=== PATIENT | male | born 1965 | race Caucasian/White ===

== ENCOUNTER 2016-04-06 09:38 | Inpatient (IN) | payer OTHER ==
[~2016-04-06] VITALS: Ht 175.3 cm; Wt 72.0 kg
--- NOTE | ~2016-04-06 | OR ---
ADMIT: 04/06/2016 RM/LOC: 528 [facility] MR#: [id number] [facility]#: [id number] [address] [address] ANTOINEAYAD LENTZDEMETRICE [address] [place] [address] Operative/Delivery Room Report SEX: M AGE: 51 : 1965 SURGERY DATE: 04/06/2016 SURGEON: Ignacio Arroyo MD PREOPERATIVE DIAGNOSIS: Right knee severe degenerative joint disease and retained hardware. POSTOPERATIVE DIAGNOSE: Right knee severe degenerative joint disease and retained hardware. PROCEDURE PERFORMED: Right total knee arthroplasty with a Dony and Dony system, size 4 posterior stabilized femoral component, size 4 tibial tray, size 41 patellar button, and hardware remover of an ACL interference screw from the tibia. SENIOR DATA WAREHOUSE ARCHITECT: DALLAS Kilgore ANESTHESIA: Spinal. ESTIMATED BLOOD LOSS: Minimal. FLUIDS: Per anesthetic record. COMPLICATIONS: No complications. DRAINS: One drain. TOURNIQUET TIME: 117 minutes. CONDITION ON DISCHARGE: The patient returned to the recovery room in fair condition. INDICATIONS: The patient has a right severe knee DJD with flexion contracture and lack of full extension, severe varus deformity. He has had an ACL reconstruction decades ago and had arthrofibrosis postoperatively that required manipulations. He desired total knee arthroplasty, understood the risks and benefits of procedure and desired to proceed with operation. DESCRIPTION OF PROCEDURE: The patient taken back to the OR, spinal placed. She was laid in the supine position. All bony prominences were well padded. Right lower extremity had a well-padded tourniquet placed. The right lower extremity was prepped draped in the usual sterile fashion. It was exsanguinated and tourniquet inflated to 350 mmHg. Anterior incision was made starting above the patella and carried down to the medial aspect of the tibial tubercle incorporating his previous ACL incision. The medial arthrotomy then was performed with a #10 blade. I had to elevate his posterior medial capsule with the elevator and elevated his MCL medially. I had to release his scar in the patellar tendon off the anterior and lateral aspect of his proximal tibia with a Bovie and debulking of the scar tissue. I was then able to find his ADMIT: 04/06/2016 RM/LOC: 528 [facility] MR#: [id number] [address] [address] [address] [place] [address] Operative/Delivery Room Report SEX: M AGE: 51 : 1965 interference screw. I loosened it and some of the bone around it with osteotome and a mallet. I then removed the screw with the screwdriver. I then was able to subluxate the patella laterally, could not mich it, but was able to flex the knee almost 90 degrees. I used a step drill and opened the intramedullary canal of the femur. I placed the IM alignment guide with the distal femoral cutting block down the intramedullary canal of the femur set at 13 mm of resection, 3 degrees of valgus cut and pinned it to the anterior aspect of the distal femur and removed the IM alignment guide. I cut the distal femur using an oscillating saw. I removed this cutting block and then placed the box cutting jig on the distal aspect of the femur. After I had sized it at 4. I made the 4 appropriate cuts using an oscillating saw. I then removed the four-in-one cutting jig and placed the box cutting jig on the distal aspect of the femur. I cut the box out of the distal femur using a reciprocating saw. Medial and lateral menisci excised. The stump of the PCL was excised. I used a proximal tibial cutting guide and cut the proximal tibia perpendicular to the long axis of the tibial shaft using the proximal tibial cutting guide and oscillating saw. I removed osteophytes medially. Again, I had to release his posterior oblique ligament medially off the screen room operator medial tibia in order to get his gaps to equalize. I was able to do this. I then cut the posterior aspect of the patella, flushed with the posterior aspects quadriceps and patellar tendon using the patella cutting saw, sized it as a 41, step drilled with the guide. I then placed trial components. A size 4 tibial tray with a 10 mm insert gave full extension, 130 degrees of flexion, good ligamentous stability, and patellar tracking. Thus, the femoral component was step drilled. Tibial component was step drilled, and cruciate punched. Trial components were then removed. Knee thoroughly injected throughout with Exparel. Knee thoroughly irrigated with bacitracin solution and dried. I then cemented the tibia, patella, and femoral components into place removing all extraneous cement as it dried. I then impacted the 10 mm insert, and the tibial tray and ran the knee through a range of motion. It had excellent range of motion and stability and patellar tracking. Thus, one deep drain was then placed. Medial arthrotomy closed using #1 Vicryl. Subcutaneous tissue closed using 2-0 Vicryl. Skin closed using alexus. Wounds were washed, dried, dressed with sterile Adaptic, 4x4s, ABD, Webril, and Sherif wrap. Drapes removed. Tourniquet let down. The patient transferred back to the recovery room in fair condition. Ignacio Arroyo MD/ susanne JOB #: [id number] CC: Ignacio Arroyo, Attending Physician Primitivo Naranjo, Family Physician
--- NOTE | 2016-04-06 16:16 | HP ---
ADMIT: 04/06/2016 RM/LOC: W.06 [facility] MR#: [id number] [facility] [address] [place] [address] [place] [address] Pre-OP History and Physical SEX: M AGE: 51 : 1965 DATE OF SERVICE: CHIEF COMPLAINT: Right knee pain. HISTORY OF PRESENT ILLNESS: The patient is a 51-year-old white male with right knee DJD, it is severe. He has had cortisone injections. He has had varus deformity of the knee and has had resection back in the 80s. He had arthrofibrosis manipulation at that time, but he has gone with degenerative changes. PAST MEDICAL HISTORY: Significant for hypertension. PAST SURGICAL HISTORY: ACL surgery. MEDICATIONS: 1. Aspirin. 2. Pravastatin. ALLERGIES: NO ALLERGIES. SOCIAL HISTORY: He does not smoke or regularly drink alcohol. PHYSICAL EXAMINATION: HEENT: Normocephalic and atraumatic. CV: Regular rate and rhythm. LUNGS: Benign. ABDOMEN: Benign. NEUROLOGIC: Awake, alert, and oriented x3. MUSCULOSKELETAL: Shows severe valgus orientation of knee. Short of couple degrees of full extension, flexes to 110 degrees. Tender over the medial joint line of the patellofemoral joint. No ligamentous laxity. ADMIT: 04/06/2016 RM/LOC: W.06 [facility] MR#: [id number] [facility] [address] [address] [address] [place] [address] Pre-OP History and Physical SEX: M AGE: 51 : 1965 IMAGING DATA: X-rays show right severe knee DJD with some medial joint space loss. At this point in time, he also has two interference screws, status post ACL reconstruction. ASSESSMENT: Right severe knee degenerative joint disease. PLAN: At this point in time, I will plan right total knee arthroplasty, hardware removal. The patient understands the risks and benefits of surgical intervention and desires to proceed. He will see his medical doctor, Dr. Naranjo for preoperative medical clearance. Follow up postoperatively in hospital for anticoagulation or any medical issues that may arise. Please refer to the H and P for any in-depth medical issues. Ignacio Arroyo MD/ susanne JOB #: [id number] CC: Ignacio Arroyo, Attending Physician Primitivo Naranjo, Family Physician
[2016-04-09] MEDS ORDERED: PRAVACHOL40 MG PO (14:48)
[2016-04-09] MEDS ORDERED: COZAAR DPS50 MG PO (14:48)
[2016-04-09] MEDS ORDERED: ASA325 MG PO (14:48)
[2016-04-09] MEDS ORDERED: [UNRECOGNIZED DRUG - OTHER] PO (14:49)
[2016-04-09] MEDS ORDERED: THERAPEUTIC MUL1 TAB PO (14:49)
[2016-04-09] MEDS ORDERED: GLUCOSAMINE/CHO1 TAB PO (14:49)
[2016-04-09] MEDS ORDERED: VITAMIN D31000 UNI1 PO (14:49)
[2016-04-09] MEDS ORDERED: OMEGA-3 DPS1000 MG PO (14:49)
[2016-04-09] MEDS ORDERED: TYLENOL DPS325 MG PO (14:50)
[2016-04-09] MEDS ORDERED: CELEBREX200 MG PO (14:50)
[2016-04-09] MEDS ORDERED: POLYETHYLENE GL17 GM PO (14:50)
[2016-04-09] MEDS ORDERED: PROTONIX40 MG PO (14:50)
[2016-04-09] MEDS ORDERED: ULTRAM DPS50 MG PO (14:51)
[2016-04-09] MEDS ORDERED: OXY IR DPS5 MG PO (14:51)
[2016-04-09] MEDS ORDERED: MAALOX DPS30 ML PO (14:51)
[2016-04-09] MEDS ORDERED: MILK OF MAGNESI10 ML PO (14:51)
--- NOTE | 2016-04-11 12:04 | CO ---
ADMIT: 04/06/2016 RM/LOC: 528 [facility] MR#: [id number] [address] [address] [address] [place] [address] Consultation Report SEX: M AGE: 51 : 1965 DATE OF CONSULTATION: 03/19/2016 ATTENDING PHYSICIAN: Ignacio Arroyo CONSULTING PHYSICIAN: Primitivo Naranjo MD ADMITTING DIAGNOSIS: End-stage degenerative arthritis, right knee. SCHEDULED PROCEDURE: A right total knee arthroplasty with Dr. Arroyo. OPERATIVE SURGEON: Ignacio Arroyo MD HISTORY OF PRESENT ILLNESS: Susana is a 51-year-old, white male, who is admitted to [place] for failed conservative management of right knee pain with scheduled right total knee arthroplasty on April 06, 2016, with Dr. Arroyo for end-stage degenerative arthritis of his right knee resulting from an injury in the 80s with a right ACL tear and subsequent sequelae. PAST MEDICAL HISTORY: Includes a prior ACL surgery in the mid 80s with prior meniscal injuries and meniscal surgeries along with an appendectomy. ILLNESSES: Include benign essential hypertension, hyperlipidemia, sensorineural hearing loss, exogenous obesity, end-stage degenerative arthritis of the right knee. MEDICATIONS: On admission include: 1. Fish oil 1000 mg b.i.d. 2. Losartan 50 mg daily. 3. Nabumetone 500 mg b.i.d. on hold. 4. Pravastatin 40 mg at bedtime. 5. Vitamin D 1000 units daily. 6. Aspirin 81 mg daily on hold. 7. Glucosamine chondroitin. ALLERGIES: NONE KNOWN. SOCIAL HISTORY: This is a 51-year-old, , white male. He does not currently smoke. He works in construction field and drinks alcohol socially. FAMILY HISTORY: Negative for anesthetic complications. REVIEW OF SYSTEMS: Remarkable for arthritis in his knees. Unilateral sensorineural hearing loss. Remainder of review of systems is negative. PHYSICAL EXAMINATION: VITAL SIGNS: Include blood pressure 132/80 with a pulse 94, temperature 98.8 with a weight of pounds with a height is 70-1/2 inches with a sat of 98%. GENERAL: Alert. HEENT: Pupils reactive. Extraocular muscle intact. TMs normal. Throat normal. ADMIT: 04/06/2016 RM/LOC: 528 [facility] MR#: [id number] [address] [address] [address] [place] [address] Consultation Report SEX: M AGE: 51 : 1965 NECK: Normal. HEART: Regular without murmur. LUNGS: Clear. ABDOMEN: Obese soft, nontender, benign. and RECTAL: Deferred. EXTREMITIES: Reveal degenerative changes of right knee with no clubbing or cyanosis. NEUROLOGIC: Exam is grossly normal including light touch, strength, and DTRs. LABORATORY AND DIAGNOSTIC DATA: Chest x-ray is normal. EKG shows normal sinus rhythm. Normal EKG. White count 7.8, hemoglobin 15.9, platelet count of 257,000. BMP with a sodium of 138, potassium 4.3, BUN of 14, creatinine 1.0, glucose 138, with a TSH and a hemoglobin A1c ordered and results pending. ASSESSMENT: End-stage degenerative arthritis, right knee. Other problems include benign essential hypertension, well controlled. Hyperlipidemia, well controlled. Sensorineural hearing loss. Exogenous obesity. Vitamin D replacement. PLAN: We will continue with his current home medications including losartan the morning of surgery. His aspirin is currently on hold. We will continue with his pravastatin and hold his vitamins, fish oil and other medications. He will be placed on the aspirin protocol for postop for ortho discussions. We will follow along in the perioperative period and for postop recovery and proceed with further evaluation and management based on his course postoperatively. Please see his hospital record for the details. Primitivo Naranjo MD/ susanne EDIT: 03/19/2016 1757 vdg EDIT: 04/07/2016 1114 stacy JOB #: [id number] CC: Ignacio Arroyo, Attending Physician Primitivo Naranjo, Family Physician
--- NOTE | 2016-04-20 14:09 | DS ---
ADMIT: 04/06/2016 RM/LOC: 528 [facility] MR#: [id number] [facility]#: [id number] [address] [address] ANTOINEMARY CARMENSUSANA [address] [place], [place] [address] General Discharge Summary SEX: M AGE: 51 : 1965 ADMISSION DATE: 04/06/2016 DISCHARGE DATE: 04/08/2016 REASON FOR ADMISSION: Right total knee arthroplasty after failing conservative treatment. PREOPERATIVE DIAGNOSES: Right knee degenerative joint disease and retained hardware. POSTOPERATIVE DIAGNOSES: Right knee degenerative joint disease and retained hardware. PROCEDURE PERFORMED: Right total knee arthroplasty and hardware removal of an ACL interference screw from the tibia. SURGEON: Dr. Ignacio Arroyo RESOURCE DEVELOPMENT MANAGER: DALLAS Kilgore ANESTHESIA: Spinal. ESTIMATED BLOOD LOSS: Minimal. COMPLICATIONS: None. ACTIVE MEDICAL PROBLEMS: 1. Essential hypertension. 2. Hyperlipidemia. 3. Sensorineural hearing loss. 4. Exogenous obesity. 5. Degenerative arthritis of the right knee. HOSPITAL COURSE: The patient was admitted on 04/06/2016 for elective right total knee arthroplasty and hardware removal of an ACL interference screw from the tibia, done successfully by Dr. Arroyo without any complications. The patient tolerated the procedure well. Postoperatively, he did well with pain control with use of intraoperative Exparel and postoperative oral analgesics. He did as expected suffered from some mild acute blood loss anemia and his hemoglobin dropped to 11.2 on 04/08/2016, but he remained hemodynamically stable and did not require blood transfusion. By postoperative day #2, he was safe and participating well with physical therapy. He was stable and ready for discharge home with plans for outpatient physical therapy. DISCHARGE MEDICATIONS: 1. Losartan 50 mg in the evening. 2. Pravastatin 40 mg in the evening. 3. Aspirin 325 mg every day for a month. 4. Vitamin D3 a 1000 units in the evening. 5. Glucosamine chondroitin 1500/1200 mg twice daily. ADMIT: 04/06/2016 RM/LOC: 528 [facility] MR#: [id number] [address] [address] [address] [place] [address] General Discharge Summary SEX: M AGE: 51 : 1965 6. Multivitamin everyday. 7. Doxylamine 25 mg at bedtime as needed. 8. Fish oil everyday. 9. Celebrex 200 mg twice daily for 30 days. 10.MiraLax 17 g everyday as needed. 11.Protonix 40 mg at bedtime. 12.Tylenol 650 mg every 4 to 6 hours as needed. 13.Ultram 50 mg every 6 hours as needed. 14.Maalox 30 mL every 6 hours as needed. 15.Milk of magnesia 10 mL daily as needed. 16.Oxy IR 5 mg 1 to 2 tablets every 4 hours as needed for breakthrough pain. DISCHARGE INSTRUCTIONS: The patient was discharged home with plans for outpatient physical therapy per total knee arthroplasty protocol. Follow up in the orthopedic office in two weeks for wound check and in six weeks with x- ray. Follow up with primary care as directed. DALLAS Kilgore / Ignacio Arroyo MD / susanne JOB #: [id number] CC: Ignacio Arroyo MD, Attending Physician Primitivo Naranjo MD, Family Physician
== END 2016-04-08 16:13 | disposition home or self-care (01) | DRG 470 ==
LOC: 5MS 10:02 → WOR 10:02 → 5MS 15:02
PROVIDERS: ADMIT Orthopaedic Surgery
PROC: 0SRC0J9 Replacement of Right Knee Joint with Synthetic Substitute, Cemented, Open Approach (ICD-10-PCS; principal; 2016-04-06)
PROC: 0QPG04Z Removal of Internal Fixation Device from Right Tibia, Open Approach (ICD-10-PCS; principal; 2016-04-06)
DX: M17.11 Unilateral primary osteoarthritis, right knee (principal); D62 Acute posthemorrhagic anemia; I10 Essential (primary) hypertension; H90.5 Unspecified sensorineural hearing loss; E78.5 Hyperlipidemia, unspecified; Z68.36 Body mass index [BMI] 36.0-36.9, adult; E66.9 Obesity, unspecified; Z79.82 Long term (current) use of aspirin

== ENCOUNTER 2016-04-11 20:22 | Emergency (ER) | payer OTHER ==
[~2016-04-11 20:22] MED LIST: ASA325 MG PO; CELEBREX200 MG PO; COZAAR DPS50 MG PO; GLUCOSAMINE/CHO1 TAB PO; MAALOX DPS30 ML PO; MILK OF MAGNESI10 ML PO; OMEGA-3 DPS1000 MG PO; OXY IR DPS5 MG PO; POLYETHYLENE GL17 GM PO; PRAVACHOL40 MG PO; PROTONIX40 MG PO; THERAPEUTIC MUL1 TAB PO; TYLENOL DPS325 MG PO; ULTRAM DPS50 MG PO; VITAMIN D31000 UNI1 PO; [UNRECOGNIZED DRUG - OTHER] PO
--- NOTE | 2016-04-12 19:48 | ER ---
ADMIT: 04/11/2016 RM/LOC: ER [facility] MR#: [id number] [address] [facility] [address] [place], [place] [address] [address] [place] [address] Emergency Room Report SEX: M AGE: 51 : 1965 DATE: 04/11/2016 TIME: 2021 Please refer to my T-sheet for complete H and P. HISTORY OF PRESENT ILLNESS: Briefly, the patient is a 51-year-old, who is status post right total knee, it was done on Tuesday by Dr. Arroyo. He said it has been a little more swollen, but he has been up and on it more. He rates the pain 0/10, but he is concerned of the swelling; he does not want to have blood clot. He called Dr. Arroyo, who recommended he come to the ER. No fevers. No other complaints. PHYSICAL EXAMINATION: VITAL SIGNS: His blood pressure 153/80, pulse 91, respirations 16, temp 100.1, saturating 95%. GENERAL: No acute distress. HEENT: Grossly normal. LUNGS: Clear. HEART: Regular. ABDOMEN: Soft. EXTREMITIES: His right leg is swollen from the knee down on the right. He has some dependent edema and stasis. There is a little bit of erythema around the knee itself, but no evidence of infection. EMERGENCY ROOM COURSE: Ultrasound of the right lower extremity was negative for DVT. His CBC was normal except for a hemoglobin of 10.9. I reassured the patient, I had a long discussion with him, he was ready for discharge. ASSESSMENT: Right knee postop swelling. PLAN: Rest, ice, elevate. Follow up with [facility], return if worse. Continue care. Bib Mar MD/ susanne JOB #: [id number] CC: Lino Hurd MD, Attending Physician Primitivo Naranjo MD, Family Physician Ignacio Arroyo MD
== END 2016-04-11 22:15 | disposition home or self-care (01) ==
LOC: ER 20:22
DX: T84.89XA Other specified complication of internal orthopedic prosthetic devices, implants and grafts, initial encounter (principal); M79.89 Other specified soft tissue disorders; Z96.651 Presence of right artificial knee joint; Z79.82 Long term (current) use of aspirin; Z98.890 Other specified postprocedural states; Z79.899 Other long term (current) drug therapy; Y83.8 Other surgical procedures as the cause of abnormal reaction of the patient, or of later complication, without mention of misadventure at the time of the procedure